=== PATIENT | male | born 1940 | race Caucasian/White ===

== ENCOUNTER 2019-10-07 16:03 | Emergency (ER) | payer MEDICAID ==
[~2019-10-07] VITALS: Ht 149.9 cm; Wt 63.5 kg
[2019-10-07 16:35] VITALS: BP 145/108
--- NOTE | 2019-10-07 16:45 | NUR ---
WAIT AT LOBBY.
--- NOTE | 2019-10-07 17:45 | NUR ---
PT AMBULATED TO ER BED 01
--- NOTE | 2019-10-07 18:11 | NUR ---
79/M C/O MID ABDOMINAL PAIN X YESTERDAY. PAIN IS INTERMITTENT. LAST BM SMALL AMOUNT THIS AM. DENIES N/V/D/FEVER. BLOOD SUGAR 101 AT TRIAGE. APPEARS NAD. REPORTS PAIN 8/10 AT THIS TIME. MED HX: DM, HTN, HLD
--- NOTE | 2019-10-07 18:48 | NUR ---
PHLEBOTOMOST AT BEDSIDE FOR BLOOD DRAW
[2019-10-07 19:12] LABS: BASOPHILS % (AUTO) 0.4 % (0.0-2.0); EOSINOPHILS % (AUTO) 0.3 % (0.0-4.0); HEMATOCRIT 43.2 % (36-52); HEMOGLOBIN 14.1 g/dL (12.0-18.0); LYMPHOCYTES % (AUTO) 8.5 % (20.5-51.1); MEAN CORPUSCULAR HEMOGLOBIN 29 pg (27-31); MEAN CORPUSCULAR HGB CONC 33 g/dL (33-37); MEAN CORPUSCULAR VOLUME 88.4 fL (80-94); MONOCYTES # (AUTO) 0.8 K/uL (0.8-1.0); MONOCYTES % (AUTO) 6.3 % (1.7-9.3); NEUTROPHILS # (AUTO) 10.4 K/uL (1.8-7.7); NEUTROPHILS % (AUTO) 84.5 % (42.2-75.2); PLATELET COUNT (AUTO) 195 K/uL (140-450); RED BLOOD CELL COUNT(AUTO) 4.88 MIL/uL (4.20-6.10); RED CELL DISTRIBUTION WIDTH 14.8 % (11.6-13.7); WHITE BLOOD COUNT (AUTO) 12.3 K/uL (4.8-10.8)
--- NOTE | 2019-10-07 19:15 | NUR ---
REPORT TO GERARDO HAYES, TRANSFER OF CARE AT THIS TIME
[2019-10-07 19:26] LABS: ALBUMIN 4.4 g/dL (3.4-5.0); ANION GAP 16.4 (8-16); ASPARTATE AMINOTRANSFERASE 25 U/L (15-37); CARBON DIOXIDE 25.1 mmol/L (21-32); CHLORIDE 105 mmol/L (98-107); CREATININE 0.9 mg/dL (0.6-1.3); GLUCOSE 110 mg/dL (74-106); LIPASE 62 U/L (73-393); POTASSIUM 3.5 mmol/L (3.5-5.1); SODIUM SERUM 143 mmol/L (136-145); TOTAL BILIRUBIN 2.4 mg/dL (0.0-1.0); UREA NITROGEN, BLOOD 18 mg/dL (7-18)
--- NOTE | 2019-10-07 19:52 | NUR ---
PT GETTING TRANSFER TO CT VIA [facility].
[2019-10-07 20:04] LABS: APPEARANCE,URINE CLEAR (CLEAR); BILIRUBIN,URINE NEGATIVE (NEGATIVE); BLOOD, URINE NEGATIVE (NEGATIVE); COLOR,URINE YELLOW (YELLOW); LEUKOCYTE ESTERASE ,URINE NEGATIVE (NEGATIVE); NITRITE, URINE NEGATIVE (NEGATIVE); UGLUCOSE 2+ (NEGATIVE)
[2019-10-07] MEDS ORDERED: KETOROLAC 30 MG/ML VIAL IVP ONE (20:50)
[2019-10-07] MEDS ORDERED: NACL 0.9% 1,000 ML IV ONE (20:50)
[2019-10-07 21:41] VITALS: BP 152/94
== END 2019-10-07 21:41 | disposition home or self-care (01) ==
LOC: MED 16:03
DX: K80.20 Calculus of gallbladder without cholecystitis without obstruction (principal); I10 Essential (primary) hypertension; E11.9 Type 2 diabetes mellitus without complications; E78.00 Pure hypercholesterolemia, unspecified
CPT/HCPCS: 36415; 80053; 81003; 82948; 83690; 85025; 99284